=== PATIENT | female | born 1970 | race Caucasian/White ===

== ENCOUNTER → 2019-08-15 | Outpatient (CLI) | payer MEDICARE, OTHER ==
[~2019-08-15] MED LIST: AZELASTINE137 MCG/0. NS; DULERA 100 MCG/13 GM INH; RITALIN LA20 MG PO; WELLBUTRIN SR100 MG ORAL; WELLBUTRIN SR150 M1 PO
--- NOTE | 2019-08-15 16:43 | Diagnostic Imaging Report ---
Indication: Cough Technique: 2 views of the chest Comparison: None Findings: Lungs and pleural spaces are clear. The heart size is normal. The bones are unremarkable. There are cholecystectomy clips Impression: Negative
== END | disposition home or self-care (01) ==
LOC: RAD 15:54
DX: R05 Cough (principal); Z90.49 Acquired absence of other specified parts of digestive tract
CPT/HCPCS: 71046